=== PATIENT | male | born 1945 | race Two or more races ===

== ENCOUNTER 2016-05-01 02:13 | Observation (INO) | payer OTHER ==
[~2016-05-01] VITALS: Ht 172.7 cm; Wt 73.5 kg
[2016-05-01 02:45] LABS: EOSINOPHIL (%) 1.2 % (0-5); EOSINOPHIL COUNT 0.1 K/uL (0-0.3); HEMATOCRIT 38.4 % (38.0-50.0); IMMATURE GRANULOCYTE (%) 0.7 % (0.0-0.7); IMMATURE GRANULOCYTE COUNT 0.6 K/uL; LYMPHOCYTE COUNT 2.9 K/uL (1.0-2.8); MCH 32.9 PG (29.0-34.0); MCHC 34.9 G/DL (30.0-36.0); MCV 94.3 FL (86-99); MEAN PLAT.VOLUME 10.7 uM^3 (9.0-12.4); MONOCYTE (%) 8.7 % (3-12); MONOCYTE COUNT 0.7 K/uL (0-0.8); NEUTROPHIL (%) 54.8 % (45-76); NEUTROPHIL COUNT 4.7 K/uL (1.8-6.4); PLATELET COUNT 211 K/uL (156-360); RBC DIS.WIDTH-CV 12.8 % (11.8-14.6); RED BLOOD COUNT 4.07 M/uL (4.00-5.50); WHITE BLOOD COUNT 8.6 K/uL (4.1-10.2)
[2016-05-01 02:57] LABS: CHLORIDE 104 mEq/L (99-109); POTASSIUM 3.5 mEq/L (3.7-5.4); SODIUM 139 mEq/L (136-147)
[2016-05-01 03:00] LABS: GLUCOSE 122 mg/dL (70-99)
[2016-05-01 03:01] LABS: ANION GAP 13 MEQ/L (2-14)
[2016-05-01 03:02] LABS: TOTAL BILIRUBIN 0.3 mg/dL (0.0-1.0)
[2016-05-01 03:03] LABS: ALKALINE PHOSPHATASE 50 IU/L (3-129); GFR ESTIMATE (CALCULATED) 49 mL/min/
[2016-05-01 03:04] LABS: UREA NITROGEN (BUN) 27 mg/dL (9-23)
[2016-05-01 03:07] LABS: TROP-I INTERPRETATION NEGATIVE; TROPONIN-I < 0.01 ng/mL (0.0-0.30)
[2016-05-01 03:56] LABS: HDL CHOLESTEROL 33 MG/DL (Desirable>=40); LDL CHOLESTEROL 57 mg/dL (Desirable<100); NON-HDL CHOLESTEROL 79 mg/dL (Desirable<160); TOTAL CHOLESTEROL 112 mg/dL (Desirable<200); TRIGLYCERIDES 109 MG/DL (Normal: <150)
[2016-05-01 04:37] VITALS: BP 153/91
[2016-05-01 08:40] VITALS: BP 137/86
[2016-05-01 11:27] VITALS: BP 138/89
[2016-05-01] MEDS ORDERED: LEVETIRACETAM500 MG PO (13:50)
[2016-05-01] MEDS ORDERED: ZESTORETIC 20-1 EAC1 PO (13:55)
[2016-05-01] MEDS ORDERED: LISINOPRIL20 MG PO (13:56)
[2016-05-01] MEDS ORDERED: SIMVASTATIN40 MG PO (13:56)
[2016-05-01] MEDS ORDERED: TIAZAC420 MG PO (13:56)
[2016-05-02 06:54] LABS: Estimated Average Glucose 131 mg/dL (70-123); HEMOGLOBIN A1c (GLYCOHEMOGLOB) 6.2 % HGB (Below 5.7)
== END 2016-05-01 15:21 | disposition home or self-care (01) ==
LOC: EME → EDBD 02:13 → EDOF 03:29 → 5WEST 04:16
PROVIDERS: Emergency Medicine
DX: R56.9 Unspecified convulsions (principal); R47.9 Unspecified speech disturbances; I10 Essential (primary) hypertension; E78.2 Mixed hyperlipidemia; F17.290 Nicotine dependence, other tobacco product, uncomplicated; Z82.3 Family history of stroke
CPT/HCPCS: 70450; 70553; 71020; 80053; 80061; 81003; 83036; 84484; 85025; 93005; 99281; 99284; G0378; J1650